=== PATIENT | female | born 1960 | race Hispanic/Latino ===

== ENCOUNTER 2018-09-16 06:49 | Emergency (ER) | payer SELFPAY ==
[~2018-09-16] VITALS: Ht 152.4 cm; Wt 72.7 kg
[2018-09-16] MEDS ORDERED: CEPHALEXIN500 M1 PO (08:18)
[2018-09-16 08:27] VITALS: BP 155/97
== END 2018-09-16 08:35 | disposition home or self-care (01) | DRG 125 ==
LOC: ED 06:49
PROC: 0HQ1XZZ Repair Face Skin, External Approach (ICD-10-PCS; principal; 2018-09-16)
DX: S01.111A Laceration without foreign body of right eyelid and periocular area, initial encounter (principal); W22.09XA Striking against other stationary object, initial encounter

== ENCOUNTER 2018-09-22 12:21 | Emergency (ER) | payer SELFPAY ==
[~2018-09-22] VITALS: Ht 152.4 cm; Wt 70.0 kg
[~2018-09-22 12:21] MED LIST: CEPHALEXIN500 M1 PO
[2018-09-22 13:30] VITALS: BP 127/76
== END 2018-09-22 13:30 | disposition home or self-care (01) | DRG 950 ==
LOC: ED 12:21
DX: S01.111D Laceration without foreign body of right eyelid and periocular area, subsequent encounter (principal); X58.XXXD Exposure to other specified factors, subsequent encounter